=== PATIENT | male | born 1965 | race Caucasian/White ===

== ENCOUNTER 2019-12-14 09:22 | Day surgery (SDC) | payer OTHER ==
[~2019-12-14] VITALS: Ht 177.8 cm; Wt 92.5 kg
[~2019-12-14 09:22] MED LIST: AMLO5TAB10 PO; ASPI-886 PO; ATOR20TA58 PO; BUPIVACAINE-EPI 0.5%-1:200000 MPF 30 ML VIAL. ONE; CARV3.12 PO; CHLORHEXIDINE 0.12% 15 ML MOUTHWASH. SWSP ONE; CHOL10003 PO; CLINDAMYCIN 900MG PREMIX 50 ML IV ONE; HYDROmorphone 2 MG/ML VIAL IV PRN; IV RINGERS,LACTATED 1000ML 1,000 ML IV SCH; LIDOCAINE 1% PF 2 ML VIAL. ID PRN; NAPR-695 PO; ONDANSETRON PF 4 MG/2 ML VIAL. IV PRN; PRAS10TA9 PO; PROCHLORPERAZINE 10 MG/2 ML VIAL. IV PRN; TRAM50TA PO; fentaNYL PF VIAL 100 MCG/2 ML VIAL IV PRN
[2019-12-14] MEDS ORDERED: AMLO10TA8 PO (10:03)
[2019-12-14] MEDS ORDERED: ATOR40TA59 PO (10:04)
[2019-12-14] MEDS ORDERED: ROCURONIUM 50 MG/5 ML VIAL. ONE (11:43)
[2019-12-14] MEDS ORDERED: fentaNYL PF VIAL 100 MCG/2 ML VIAL ONE (11:44)
[2019-12-14] MEDS ORDERED: PROPOFOL 10 MG/ML (20ML) VIAL. IV ONE (12:06)
[2019-12-14] MEDS ORDERED: LIDOCAINE 2% PF 5 ML VIAL. ONE (12:06)
[2019-12-14] MEDS ORDERED: DEXAMETHASONE SOD PHOS 4 MG/ML VIAL ONE (12:06)
[2019-12-14] MEDS ORDERED: DESFLURANE 31 TO 60 MINUTES IH ONE (12:07)
[2019-12-14] MEDS ORDERED: NEOSTIGMINE METHYLSULFATE 5 MG/5 ML SYRINGE. ONE (12:21)
[2019-12-14] MEDS ORDERED: ONDANSETRON PF 4 MG/2 ML VIAL. ONE (12:21)
[2019-12-14] MEDS ORDERED: GLYCOPYRROLATE 1 MG/5 ML VIAL. ONE (12:22)
[2019-12-14] MEDS ORDERED: METOPROLOL TARTRATE 5 MG/5 ML VIAL. IVP ONE (12:29)
[2019-12-14] MEDS ORDERED: THROMBIN TOPICAL 20,000 UNIT SPRAY.SYRN KIT TP ONE (12:50)
[2019-12-14] MEDS ORDERED: GELATIN SPONGE SIZE 100. ONE (13:42)
--- NOTE | 2019-12-14 13:42 | PDOC4 ---
OPERATIVE NOTE Date: Date: Dec 14, 2019 Pre-Op Diagnosis: CAD Carious, non restorable teeth # 11, 21,22,26,27,28,29,30 Bilateral mandibular araceli Post-Op Diagnosis: same Procedure Performed: Surgical removal of Carious, non restorable teeth # 11, 21,22,26,27,28,29,30 Bilateral mandibular araceli UL , LR, LL alveoloplasty Surgeon: aditya Anesthesia Type: shaun dominguez Blood Loss: 100 Specimans Obtained: none teeth disposed of in OR Findings: see dictation Complications: none Operative Note: see dictation sx removal of Carious, non restorable teeth # 11, 21,22,26,27,28,29,30 Bilateral mandibular araceli MEAGHAN SR DMD Dec 14, 2019 13:42
[2019-12-14] MEDS: fentaNYL PF VIAL 100 MCG/2 ML VIAL IV PRN ×3 (13:45→14:21)
[2019-12-14] MEDS ORDERED: HYDR-2163 PO (14:14)
[2019-12-14] MEDS ORDERED: HYDROcodone/APAP 5/325MG 1 TAB TABLET PO ONE (14:15)
[2019-12-14] MEDS ORDERED: CHLO15MO2 PO (14:27)
[2019-12-14] MEDS ORDERED: CLIN150C2 PO (14:29)
--- NOTE | 2019-12-14 14:34 | OP ---
DATE OF SURGERY: 12/14/2019 OPERATING SERVICE: Oral Maxillofacial Surgery. ATTENDING PHYSICIAN: Erick Sr DMD PREOPERATIVE DIAGNOSES: Coronary artery disease requiring urgent CABG and aortic stenosis requiring aortic valve replacement. He also has caries, nonrestorable teeth numbers 11, 20, 21, 22, 26, 27, 28, 29 and 30. He also has bilateral mandibular araceli. POSTOPERATIVE DIAGNOSES: Coronary artery disease requiring urgent CABG and aortic stenosis requiring aortic valve replacement. He also has caries, nonrestorable teeth numbers 11, 20, 21, 22, 26, 27, 28, 29 and 30. He also has bilateral mandibular araceli. ANESTHESIA: General anesthetic. PROCEDURES PERFORMED: 1. General anesthetic. 2. Surgical removal of teeth 11, 20, 21, 22, 26, 27, 28, 29 and 30. He had three quadrants of alveoloplasty, upper left alveoloplasty, lower left alveoloplasty and lower right alveoloplasty also had removal of bilateral mandibular araceli. BRIEF HISTORY: The patient was referred to our clinic by the [facility] for removal of aforementioned teeth and preprosthetic surgery. He has his multiple cardiac modalities. We discussed the safe setting of care, we escalated the setting of care to the OR for the patient's protection in light of a possible cardiac event during surgery. The patient was affable with our plan. History and physical was performed in our clinic and the patient's permit was obtained. The patient was then scheduled for surgery. ESTIMATED BLOOD LOSS: 100 mL. SPECIMEN SENT: None. DRAINS PLACED: None. COMPLICATIONS: None noted at the time of surgery. OPERATIVE DESCRIPTION: After the history and physical was updated in the preoperative holding area, the patient was transported by the Anesthesia Service to the operating suite, placed in the supine position. General anesthesia was induced. The patient was intubated with an oral intubation without complication. The tube was secured to the upper left face. Timeout was initiated and all perioperative staff was in agreeance. The patient was wrapped with pressure points padded and a mummy wrap. The patient was then prepped and draped in a normal sterile fashion. Surgery began with the placement of 15 mL of 0.5% Marcaine, 1:200,000 epinephrine. After 10 minutes, an additional 5 mL were administered. At the culmination of the procedures, an additional 8 mL were administered for a total of 28. A 2 mL were spilled during the administration of the local anesthetic. Surgery began with a 15 blade. In the upper left quadrant, a full thickness mucoperiosteal flap was created at the crest of the ridge. Full thickness mucoperiosteal flaps were reflected. Tooth #11 was luxated, elevated and extracted and the alveoloplasty was performed in the upper left quadrant. Site was then utilized with a bone file to smooth the site and curetted with curette, and irrigated with copious normal sterile saline irrigation. Gelfoam was placed and the site was oversewn with 3-0 chromic gut sutures. Then, surgery continued to the lower left, lower right quadrants where a #15 blade was utilized to create a full thickness mucoperiosteal flap with distal hockey stick incisions. The mucosa were luxated reflected buccally and lingually. The teeth were luxated, elevated and extracted without complication in the lower right and lower left quadrants. No root tips were remaining. All extraction sites were curetted with curettage to remove any periapical granulomatous tissue. Rotary instrumentation with copious normal sterile saline was utilized to perform the bilateral mandibular araceli removal. I also used to smooth out the alveoloplasty in addition to a rongeur with hand instruments and bone files utilized to smooth the right lower left dental alveolar ridges and removed any bony undercuts. The sites were then lavaged again with copious normal sterile saline. Gelfoam was coated with topical thrombin and placed in each extraction site and oversewn with 3-0 chromic gut sutures in running locked fashion where he was found to be hemostatic at the culmination of the procedure and the oral cavity was then lavaged and suctioned. The moistened throat pack was removed. An OG was passed. The stomach was decompressed and the patient was then returned to the care of Anesthesia, where he was awakened and extubated without complication and transported to the PACU in a stable condition. ERICK SR DMD DR: Rodney JOB#: [id number] / [id number]
[2019-12-14] MEDS: MORPHINE SULFATE 2 MG/ML VIAL. IV PRN ×2 (14:46→15:15)
[2019-12-14 15:42] VITALS: BP 145/89
== END 2019-12-14 15:45 | disposition home or self-care (01) ==
LOC: SURG 09:22
PROVIDERS: ATTEND Dentist Oral and Maxillofacial Surgery
DX: I25.10 Atherosclerotic heart disease of native coronary artery without angina pectoris (principal); K02.9 Dental caries, unspecified; F43.0 Acute stress reaction; I10 Essential (primary) hypertension; I35.0 Nonrheumatic aortic (valve) stenosis; Z95.5 Presence of coronary angioplasty implant and graft; E78.5 Hyperlipidemia, unspecified; Z88.0 Allergy status to penicillin; Z87.891 Personal history of nicotine dependence; Z82.49 Family history of ischemic heart disease and other diseases of the circulatory system; Z83.3 Family history of diabetes mellitus
CPT/HCPCS: 41899; A7015; J1100; J2270; J2405; J2704; J2710; J3010; J3490; J7120